=== PATIENT | male | born 1985 | race Two or more races ===

== ENCOUNTER 2018-01-18 07:30 | Emergency (ER) | payer BC ==
[~2018-01-18] VITALS: Ht 175.3 cm; Wt 100.0 kg
[2018-01-18 08:26] VITALS: BP 152/98
== END 2018-01-18 08:28 | disposition home or self-care (01) ==
LOC: ED 08:23 → EDBD 08:23 → ED 08:28
DX: M54.6 Pain in thoracic spine (principal); F14.10 Cocaine abuse, uncomplicated
CPT/HCPCS: 71046; 99284